=== PATIENT | female | born 1985 | race Caucasian/White ===

== ENCOUNTER 2017-06-16 20:25 | Emergency (ER) | payer SELFPAY ==
[~2017-06-16 20:25] MED LIST: AZITHROMYCIN250 MG PO; IBUPROFEN800 MG PO; TESSALON PERLE100 MG PO; ZITHROMAX Z-PA250 M1 PO; ZOFRAN ODT4 MG PO
[2017-06-16] MEDS ORDERED: ESCITALOPRAM OX20 MG PO (20:42)
[2017-06-16 20:44] VITALS: BP 135/91
--- NOTE | 2017-06-16 21:06 | ED GENERAL ADULT ---
History of Present Illness General Chief Complaint: General Adult Stated Complaint: "HEMATRUIA AND BACK PAIN AND CRAMPS" Source: patient, family Exam Limitations: no limitations Vital Signs & Intake/Output Vital Signs & Intake/Output Vital Signs Date Time Temp Pulse Resp B/P B/P Pulse O2 O2 Flow FiO2 Mean Ox Delivery Rate 06/16 2043 98.0 67 22 135/91 ED Intake and Output 06/17 0000 06/16 1200 Intake Total 0 Output Total Balance 0 Intake, Oral 0 Allergies Coded Allergies: Sulfa (Sulfonamide Antibiotics) (Severe, SOB 07/01/15) cefaclor (Severe, Swelling, Shortness of Breath 07/01/15) sulfamethoxazole (From BACTRIM) (Severe, SOB 07/01/15) trimethoprim (From BACTRIM) (Severe, SOB 07/01/15) Reconcile Medications Escitalopram Oxalate 20 MG TABLET 1 TAB PO DAILY ANXIETY (Reported) Triage Note: PER PT NOTED BLOOD IN ?URINE THIS AM, OR ITS VAGINAL OR MY PERIOD NOT SURE LAST TIME PERIOD 2 TIMES THIS MONTH CO NO BACK PAIN BUT UNCOMF. Triage Nurses Notes Reviewed? yes : No Patient currently breastfeeds: No HPI: 31F no PMH with vaginal spotting for the past few hours with lower abdominal cramping, LMP 1 week ago, no foul smelling or any other kind of discharge, no trauma. Usually regular with her period. No other symptoms. Past History Travel History Traveled to [place] past 21 day No Medical History Any Pertinent Medical History? see below for history Neurological: NONE EENT: NONE Cardiovascular: NONE Respiratory: NONE Gastrointestinal: NONE Renal: NONE Musculoskeletal: NONE Psychiatric: anxiety, depression Endocrine: NONE Surgical History Surgical History: N Psychosocial History What is your primary language Slovak Tobacco Use: Never used Family History Hx Contributory? No Review of Systems Review of Systems Constitutional: Reports: no symptoms. EENTM: Reports: no symptoms. Respiratory: Reports: no symptoms. Cardiovascular: Reports: no symptoms. GI: Reports: no symptoms. Genitourinary: Reports: see HPI. Musculoskeletal: Reports: no symptoms. Skin: Reports: no symptoms. Neurological/Psychological: Reports: no symptoms. Hematologic/Endocrine: Reports: no symptoms. Immunologic/Allergic: Reports: no symptoms. All Other Systems: Reviewed and Negative Physical Exam Physical Exam General Appearance: well developed/nourished, no apparent distress Head: atraumatic, normal appearance Eyes: Bilateral: normal appearance. Ears, Nose, Throat: normal pharynx, normal ENT inspection, hearing grossly normal Neck: normal inspection, supple, full range of motion Respiratory: normal breath sounds, chest non-tender, no respiratory distress Cardiovascular: regular rate/rhythm Gastrointestinal: normal bowel sounds, soft Back: normal inspection, normal range of motion Extremities: normal inspection, normal range of motion Neurologic/Psych: awake, alert, oriented x 3, normal mood/affect Skin: intact, normal color, warm/dry Core Measures ACS in differential dx? No CVA/TIA Diagnosis: No Sepsis Present: No Sepsis Focused Exam Completed? No Progress Differential Diagnoses I considered the following diagnoses in my evaluation of the patient: , STI, PID, perforation, menorrhagia, ifnection, trauma Plan of Care: Orders Procedure Date/time Status URINE 06/16 2042 Complete URINALYSIS 06/16 2042 Complete Laboratory Tests 06/16/17 2100: Urinalysis HEAVY H, Urine Color YEL, Urine Clarity HAZY H, Urine pH 6.0, Ur Specific Dixon >= 1.030, Urine Protein NEG, Urine Ketones TRACE H, Urine Nitrite NEG, Urine Bilirubin NEG, Urine Urobilinogen 0.2, Ur Leukocyte Esterase NEG, Ur Microscopic SEDIMENT EXAMINED, Urine WBC RARE, Ur Epithelial Cells MOD H, Urine Bacteria MOD H, Urine Mucus MOD H, Urine Hemoglobin LARGE H, Urine Glucose NEG, Urine Test NEGATIVE No evidence of acute disease, most likely menorrhagia, will follow up with [facility]. Initial ED EKG: none Departure Departure Disposition: HOME OR SELF CARE Condition: Stable Clinical Impression Primary Impression: Menorrhagia Referrals: Alex Eastman MD (PCP/Family) Additional Instructions: Follow up with your [facility], return to ED if new or worsening symptoms. Departure Forms: Customer Survey General Discharge Information Critical Care Note Critical Care Note Critical Care Time: non-applicable ED Attending Observation Initial Observation Note: I have seen and personally examined WILFREDO STORM on 06/17/17 at 0119. I agree with the current emergency department documentation. The disposition (admission or discharge) is uncertain at this time, she needs a period of observation for the following reason(s): The ED Nurse caring for this patient has been personally informed as to what the patient is being observed for.
== END 2017-06-16 21:57 ==
LOC: ERH 20:25
DX: N92.0 Excessive and frequent menstruation with regular cycle (principal)
CPT/HCPCS: 81001; 81025

== ENCOUNTER → 2017-10-23 | Day surgery (SDC) | payer OTHER, MEDICARE ==
[~2017-10-23] VITALS: Ht 167.6 cm; Wt 95.3 kg
[~2017-10-23] MED LIST changes: +ESCITALOPRAM OX20 MG PO
[2017-10-23 11:48] LABS: ABSOLUTE BASOPHIL COUNT 0 /CUMM (0.0-0.2); ABSOLUTE EOSINOPHIL COUNT 0 /CUMM (0.0-0.7); ABSOLUTE LYMPH COUNT 2.3 /CUMM (1.2-3.4); ABSOLUTE MONOCYTE COUNT 0.5 /CUMM (0.10-0.60); BASOPHIL % 0.4 % (0.0-2.0); EOSINOPHIL % 0.8 % (0-5); GRANULOCYTE % 50.7 % (42.2-75.2); MEAN CORPUSCULAR HGB 30.5 PG (27.0-31.0); MEAN CORPUSCULAR HGB CONC 34.1 G/DL (33.0-37.0); MEAN CORPUSCULAR VOLUME 89.3 FL (81.0-99.0); MEAN PLATELET VOLUME 7.9 FL (7.4-10.4); PLATELET COUNT 243 /CUMM (130-400); RBC DISTRIBUTION WIDTH 13.2 % (11.5-14.5); RED BLOOD CELL CT 4.15 /CUMM (4.20-5.40); WHITE BLOOD CELL COUNT 5.8 /CUMM (4.8-10.8)
--- NOTE | 2017-10-23 17:23 | Operative Report ---
Operative/Inv Procedure Report Surgery Date: 10/23/17 Name of Procedure: Laser vaporization of the cervix Pre-Operative Diagnosis: OSCAR-2 Post-Operative Diagnosis: OSCAR-2 Estimated Blood Loss: scant Surgeon/Sustainability Director: Joao TELLEZ,Alex Sifuentes Anesthesia: tiva Specimens: none Operative/Procedure Note Note: After the induction of anesthesia the patient was placed in the dorsal supine position in high stirrups. The patient was draped in the usual sterile fashion and wet towel drapes were placed over the sterile drapes, appropriate eye protection was instituted. The CO2 laser was connected to the microscope cervix was prepped with Lugol's solution. The cervix was circumferentially infiltrated with 5 mL of Nesacaine with epinephrine. The transformation zone was vaporized to a depth of 6 mm. Hemostasis was achieved with Monsel solution. Patient was awakened and moved to recovery room in good condition.
== END ==
LOC: STS 01:59
PROVIDERS: Obstetrics & Gynecology
DX: N87.1 Moderate cervical dysplasia (principal); N76.0 Acute vaginitis
CPT/HCPCS: 36415; 81025; J3360; J3490